=== PATIENT | male | born 1945 | race Caucasian/White ===

== ENCOUNTER 2017-01-05 07:34 | Day surgery (SDC) | payer MEDICARE, BC ==
[~2017-01-05 07:34] MED LIST: Lactated Ringers 1,000 ML IV SCH; Lidocaine 1%/Sod Bicarbonate in NS 8.4% 1 ML Syringe IV PRN; Propofol 200 MG/20 ML SDV ONE; Sodium Chloride 0.9% 10 ML Syringe FLUSH PRN
--- NOTE | 2017-01-05 07:57 | PCM.PREANE ---
Preanesthetic Assessment - Anesthesia/Transfusion/Family Hx Anesthesia History: Prior Anesthesia Without Reaction Family History of Anesthesia Reaction: No - Review of Systems General: No Symptoms Pulmonary: No Symptoms Cardiovascular: No Symptoms Gastrointestinal: No symptoms Neurological: No Symptoms Other: Reports: None - Physical Assessment Pulse: 75 O2 Sat by Pulse Oximetry: 94 Respiratory Rate: 16 Blood Pressure: 151/72 Temperature: 98.8 C ASA Class: 2 Mental Status: Alert & Oriented x3 Airway Class: Mallampati = 2 Dentition: Reports: Normal Dentition Thyro-Mental Finger Breadths: 3 Mouth Opening Finger Breadths: 3 ROM/Head Extension: Full Lungs: Clear to auscultation, Normal respiratory effort Cardiovascular: Regular Rate, Regular Rhythm - Allergies Allergies/Adverse Reactions: Allergies Allergy/AdvReac Type Severity Reaction Status Date / Time cefuroxime Allergy Cannot Verified 01/02/17 14:36 Remember - Anesthesia Plan Beta Dayan: Carvedilol Med Last Dose Date: 01/05/17 Med Last Dose Time: 06:00 - Acknowledgements Anesthesia Type Planned: MAC Pt an Appropriate Candidate for the Planned Anesthesia: Yes Alternatives and Risks of Anesthesia Discussed w Pt/Guardian: Yes Pt/Guardian Understands and Agrees with Anesthesia Plan: Yes PreAnesthesia Questionnaire HEENT History: Reports: Impaired vision, Other (see below) Other HEENT History: deviated septum Cardiovascular History: Reports: CAD, High cholesterol, Hypertension, Stents Respiratory History: Reports: None Gastrointestinal History: Reports: GERD, Hemorrhoids Genitourinary History: Reports: Renal calculus 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: None Musculoskeletal History: Reports: None Neurological History: Reports: None Psychiatric History: Reports: None Endocrine/Metabolic History: Reports: None Hematologic History: Reports: None Oncologic (Cancer) History: Reports: None Dermatologic History: Reports: None - Infectious Disease History Infectious Disease History: Reports: None - Past Surgical History Head Surgeries/Procedures: Reports: None HEENT Surgical History: Reports: Adenoidectomy, Tonsillectomy Cardiovascular Surgical History: Reports: Coronary artery stent Respiratory Surgical History: Reports: None GI Surgical History: Reports: Cholecystectomy, Other (see below) Other GI Surgeries/Procedures: hemorrhoidectomy Female Surgical History: Reports: None Male Surgical History: Reports: None Endocrine Surgical History: Reports: None Neurological Surgical History: Reports: None Musculoskeletal Surgical History: Reports: None, Other (see below) Other Musculoskeletal Surgeries/Procedures:: Right ankle fracture with hardware Oncologic Surgical History: Reports: None Dermatological Surgical History: Reports: None - Past Imaging History Past Imaging History: Reports: Angiography - SUBSTANCE USE Smoking Status *Q: Former Smoker Recreational Drug Use History: No - HOME MEDS Home Medications: Home Meds Aspirin [Adult Low Dose Aspirin EC] 81 mg PO DAILY 03/23/14 [History] Carvedilol [Coreg] 3.125 mg PO BID 03/23/14 [History] Clopidogrel [Plavix] 75 mg PO DAILY 03/23/14 [History] Doxazosin [Doxazosin Mesylate] 4 mg PO DAILY 03/23/14 [History] Lisinopril/Hydrochlorothiazide [Lisinopril-Hctz 10-12.5 mg Tab] 1 tab PO DAILY 03/23/14 [History] Nitroglycerin [Nitrostat] 0.4 mg SL ASDIRECTED PRN 03/23/14 [History] Rosuvastatin [Crestor] 20 mg PO DAILY 03/23/14 [History] Ubidecarenone [Co Q-10] 200 mg PO DAILY 03/23/14 [History] Beta-Carotene(A) w/C & E/Min [Prosight] 1 tab PO DAILY 01/02/17 [History] amLODIPine [Norvasc] 5 mg PO DAILY 01/02/17 [History] - CURRENT (IN HOUSE) MEDS Current Meds: Current Medications Lactated Ringer's (Ringers, Lactated) 1,000 mls @ 125 mls/hr IV ASDIRECTED RAJANI Stop: 01/05/17 23:00 Lidocaine/Sodium Bicarbonate (Buffered Lidocaine 1% In Ns 8.4%) 0.25 ml IV ONETIME PRN PRN Reason: Prior to IV Start Stop: 01/05/17 18:00 Sodium Chloride (Saline Flush) 10 ml FLUSH ASDIRECTED PRN PRN Reason: Keep Vein Open Stop: 01/05/17 18:00 Discontinued Medications Propofol (Diprivan 20 Ml) Confirm Administered Dose 200 mg .ROUTE .STK-MED ONE Stop: 01/05/17 07:12 Preanesthetic Assessment - ALLERGIES Allergies/Adverse Reactions: Allergies Allergy/AdvReac Type Severity Reaction Status Date / Time cefuroxime Allergy Cannot Verified 01/02/17 14:36 Remember
[2017-01-05] MEDS ORDERED: Propofol 200 MG/20 ML SDV ONE ×4 (09:28→10:18)
[2017-01-05] MEDS ORDERED: Lactated Ringers 1,000 ML ONE (09:57)
--- NOTE | 2017-01-05 10:11 | PCM.OPNOTE ---
- General Post-Op/Procedure Note Date of Surgery/Procedure: 01/05/17 Operative Procedure(s): colonosocopy with polypectomy Pre Op Diagnosis: screening colonosocopy Post-Op Diagnosis: Same Anesthesia Technique: MAC Primary Surgeon: Nadeem Coronel EBL in mLs: 0 Complications: None Condition: Good
--- NOTE | 2017-01-05 10:15 | PCM48HPAN ---
Post Anesthesia Note - EVALUATION WITHIN 48HRS OF ANESTHETIC Vital Signs in Normal Range: Yes Patient Participated in Evaluation: Yes Respiratory Function Stable: Yes Airway Patent: Yes Cardiovascular Function Stable: Yes Hydration Status Stable: Yes Pain Control Satisfactory: Yes Nausea and Vomiting Control Satisfactory: Yes Mental Status Recovered: Yes
[2017-01-05 11:17] VITALS: BP 130/75
--- NOTE | 2017-01-06 09:35 | OR ---
DATE OF OPERATION: 01/05/2017 SURGEON: Nadeem Coronel MD PREOPERATIVE DIAGNOSIS: Screening colonoscopy. POSTOPERATIVE DIAGNOSIS: Screening colonoscopy. OPERATION PERFORMED: Colonoscopy to cecum with removal of a 1 cm plus polyp adjacent from the ileocecal valve. ANESTHESIA: IV sedation. FINDINGS: A sessile polyp approximately a little over a centimeter located adjacent from the ileocecal valve at the junction of the cecum with the ascending colon. There is no angiodysplasias, large tumor masses, ulcerations, diverticulum, or hemorrhoids. DESCRIPTION OF PROCEDURE: The patient was taken to the endoscopy room, placed in the supine position, connected to monitoring equipment, given IV sedation and placed in left lateral position. Perianal area was inspected, it was normal. Rectal exam showed good sphincter tone. A Video Olympus colonoscope was then introduced without problem to the cecum, where the appendicular orifice was seen. The prep was excellent throughout the colon. [place] Cleansing score grade A, and the scope was slowly withdrawn showing the cecum, ascending colon, transverse colon, descending colon, sigmoid colon, and rectum. A polyp that was sessile as described above, severed with cautery, snared in morsels, it was removed and it was retrieved with a basket snare. The site that the polypectomy was done, 2 clips were placed to seal it. The patient tolerated the procedure, sent to recovery room in a stable condition. Will be followed up in the clinic and specimens sent to Pathology in a labeled container. ESTIMATED BLOOD LOSS: MMODAL /[id number]
== END 2017-01-05 11:10 | disposition home or self-care (01) ==
LOC: JD.SDS 07:34
PROVIDERS: ATTEND Surgery
DX: Z12.11 Encounter for screening for malignant neoplasm of colon (principal); D12.0 Benign neoplasm of cecum; I25.10 Atherosclerotic heart disease of native coronary artery without angina pectoris; E78.5 Hyperlipidemia, unspecified; I10 Essential (primary) hypertension; Z88.1 Allergy status to other antibiotic agents; Z79.82 Long term (current) use of aspirin; Z79.899 Other long term (current) drug therapy; Z87.891 Personal history of nicotine dependence; Z79.02 Long term (current) use of antithrombotics/antiplatelets; Z95.5 Presence of coronary angioplasty implant and graft; Z90.49 Acquired absence of other specified parts of digestive tract; Z98.890 Other specified postprocedural states
CPT/HCPCS: 45385; 88305; J7120; 00810; J2704

== ENCOUNTER 2017-01-12 18:30 | Observation (INO) | payer MEDICARE, BC ==
[2017-01-12] MEDS ORDERED: Sodium Chloride 0.9% 1,000 ML ONE (18:38)
[2017-01-12] MEDS ORDERED: Sodium Chloride 0.9% 1,000 ML IV ONE (18:40)
[2017-01-12] MEDS ORDERED: Propofol 200 MG/20 ML SDV ONE (19:33)
[2017-01-12] MEDS ORDERED: Midazolam 1 MG/ML 2 ML SDV ONE (19:33)
[2017-01-12] MEDS ORDERED: fentaNYL 250 MCG/5 ML SDV ONE (19:33)
[2017-01-12] MEDS ORDERED: Succinylcholine/Normal Saline 100 MG/5 ML Syringe ONE (19:39)
[2017-01-12] MEDS ORDERED: Lidocaine 1% 4 ML ONE (19:39)
[2017-01-12] MEDS ORDERED: Ondansetron 4 MG/2 ML SDV ONE (19:39)
[2017-01-12] MEDS ORDERED: Dexamethasone 4 MG/ML SDV ONE (19:39)
[2017-01-12] MEDS ORDERED: ePHEDrine/Normal Saline 25 MG/5 ML Syringe ONE ×3 (19:56→20:23)
[2017-01-12] MEDS ORDERED: Phenylephrine 1% 10 MG/ML SDV ONE ×2 (20:06→20:10)
[2017-01-12] MEDS ORDERED: Lactated Ringers 1,000 ML ONE ×2 (20:40)
[2017-01-12] MEDS ORDERED: Sodium Chloride 0.9% 1,000 ML IV SCH (20:45)
[2017-01-12] MEDS ORDERED: Nitroglycerin 0.4 MG Tab.SL SL PRN (20:49)
--- NOTE | 2017-01-12 20:52 | PCM.OPNOTE ---
- General Post-Op/Procedure Note Date of Surgery/Procedure: 01/12/17 Operative Procedure(s): colonoscopy with coagulation of bleeder Pre Op Diagnosis: gi bleeding lower Post-Op Diagnosis: Same Anesthesia Technique: General ET tube Primary Surgeon: Nadeem Coronel EBL in mLs: 0 Complications: None Condition: Good
[2017-01-12] MEDS ORDERED: CRESTOR 20 MG PO SCH (21:00)
[2017-01-12] MEDS ORDERED: Ondansetron 4 MG/2 ML SDV IVPUSH PRN (21:01)
[2017-01-12] MEDS ORDERED: diphenhydrAMINE 50 MG/ML SDV IVPUSH PRN (21:01)
[2017-01-12] MEDS ORDERED: fentaNYL 100 MCG/2 ML SDV IVPUSH PRN (21:01)
--- NOTE | 2017-01-12 21:01 | PCM.POSTAN ---
POST ANESTHESIA ASSESSMENT - MENTAL STATUS Mental Status: alert, oriented - VITAL SIGNS Pulse Rate: 78 SaO2: 91 Resp Rate: 11 Blood Pressure: 145/66 Temperature: 36.4 C - RESPIRATORY Respiratory Status: respiratory rate WNL, airway patent, O2 saturation stable, supplemental oxygen - CARDIOVASCULAR CV Status: pulse rate WNL, blood pressure stable - GASTROINTESTINAL GI Status: no symptoms - PAIN Pain Score: 0 - POST OP HYDRATION Hydration Status: adequate & stable
--- NOTE | 2017-01-12 21:12 | PCM.PREANE ---
Preanesthetic Assessment - Anesthesia/Transfusion/Family Hx Anesthesia History: Prior Anesthesia Without Reaction Type of Anesthesia Reaction: Unknown Family History of Anesthesia Reaction: No Transfusion History: No Prior Transfusion(s) Type of Transfusion Reactions: Reports: Unknown Intubation History: Unknown Additional History: Patient just had a colonoscopy here last week. Plavix held 5 days prior to that procedure and has been held post procedure. - Review of Systems General: No Symptoms Pulmonary: No Symptoms Cardiovascular: No Symptoms Gastrointestinal: Diarrhea (bloody) Neurological: No Symptoms - Physical Assessment NPO Status Date: 01/12/17 NPO Status Time: 16:30 Pulse: 78 O2 Sat by Pulse Oximetry: 94 Respiratory Rate: 14 Blood Pressure: 145/66 Temperature: 36.4 C Vital Signs: Last Vital Signs Temp 36.1 C 01/12/17 21:05 Pulse 78 01/12/17 21:01 Resp 14 01/12/17 21:05 BP 131/58 L 01/12/17 21:05 Pulse Ox 94 L 01/12/17 21:05 Height: 1.75 m Weight: 138.799 kg ASA Class: 3E Mental Status: Alert & Oriented x3 Airway Class: Mallampati = 2 Dentition: Reports: Normal Dentition Thyro-Mental Finger Breadths: 3 Mouth Opening Finger Breadths: 3 ROM/Head Extension: Full Lungs: Clear to auscultation Cardiovascular: Regular Rate, Regular Rhythm - Lab Values: Laboratory Last Values WBC 11.72 K/mm3 (4.23-9.07) H 01/12/17 18:35 RBC 5.24 M/mm3 (4.63-6.08) 01/12/17 18:35 Hgb 14.2 gm/L (13.7-17.5) 01/12/17 18:35 Hct 42.6 % (40.1-51.0) 01/12/17 18:35 MCV 81.3 fl (79.0-92.2) 01/12/17 18:35 MCH 27.1 pg (25.7-32.2) 01/12/17 18:35 MCHC 33.3 g/dl (32.2-35.5) 01/12/17 18:35 RDW Std Deviation 41.3 fL (35.1-43.9) 01/12/17 18:35 Plt Count 284 K/mm3 (163-337) 01/12/17 18:35 MPV 10.4 fl (9.4-12.3) 01/12/17 18:35 Neut % (Auto) 68.8 % (34.0-67.9) H 01/12/17 18:35 Lymph % (Auto) 20.7 % (21.8-53.1) L 01/12/17 18:35 [place] % (Auto) 7.8 % (5.3-12.2) 01/12/17 18:35 Eos % (Auto) 2.1 (0.8-7.0) 01/12/17 18:35 Baso % (Auto) 0.4 % (0.1-1.2) 01/12/17 18:35 Neut # (Auto) 8.06 K/mm3 (1.78-5.38) H 01/12/17 18:35 Lymph # (Auto) 2.43 K/mm3 (1.32-3.57) 01/12/17 18:35 [place] # (Auto) 0.91 K/mm3 (0.30-0.82) H 01/12/17 18:35 Eos # (Auto) 0.25 K/mm3 (0.04-0.54) 01/12/17 18:35 Baso # (Auto) 0.05 K/mm3 (0.01-0.08) 01/12/17 18:35 Sodium 140 mEq/L (136-145) 01/12/17 18:35 Potassium 4.2 mEq/L (3.5-5.1) 01/12/17 18:35 Chloride 105 mEq/L (98-107) 01/12/17 18:35 Carbon Dioxide 25 mEq/L (21-32) 01/12/17 18:35 Anion Gap 14.2 (5-15) 01/12/17 18:35 BUN 24 mg/dL (7-18) H 01/12/17 18:35 Creatinine 1.2 mg/dL (0.7-1.3) 01/12/17 18:35 Est Cr Clr Drug Dosing TNP 01/12/17 18:35 Estimated GFR (MDRD) 59 mL/min (>60) 01/12/17 18:35 BUN/Creatinine Ratio 20.0 (14-18) H 01/12/17 18:35 Glucose 179 mg/dL (83-115) H 01/12/17 18:35 Calcium 8.6 mg/dL (8.5-10.1) 01/12/17 18:35 Total Bilirubin 0.5 mg/dL (0.2-1.0) 01/12/17 18:35 AST 15 U/L (15-37) 01/12/17 18:35 ALT 29 U/L (16-63) 01/12/17 18:35 Alkaline Phosphatase 71 U/L (46-116) 01/12/17 18:35 Total Protein 6.2 g/dl (6.4-8.2) L 01/12/17 18:35 Albumin 3.4 g/dl (3.4-5.0) 01/12/17 18:35 Globulin 2.8 gm/dL 01/12/17 18:35 Albumin/Globulin Ratio 1.2 (1-2) 01/12/17 18:35 Blood Type A POSITIVE 01/12/17 18:35 Gel Antibody Screen Negative 01/12/17 18:35 Crossmatch See Detail 01/12/17 18:35 - Allergies Allergies/Adverse Reactions: Allergies Allergy/AdvReac Type Severity Reaction Status Date / Time cefuroxime Allergy Cannot Verified 01/12/17 18:53 Remember - Blood Blood Available: No Product(s) Available: None - Anesthesia Plan Beta Dayan: Carvedilol Med Last Dose Date: 01/12/17 Med Last Dose Time: 08:30 - Acknowledgements Anesthesia Type Planned: General Anesthesia Pt an Appropriate Candidate for the Planned Anesthesia: Yes Alternatives and Risks of Anesthesia Discussed w Pt/Guardian: Yes Pt/Guardian Understands and Agrees with Anesthesia Plan: Yes PreAnesthesia Questionnaire HEENT History: Reports: Impaired vision, Other (see below) Other HEENT History: deviated septum Cardiovascular History: Reports: CAD, High cholesterol, Hypertension, Stents Respiratory History: Reports: None Gastrointestinal History: Reports: GERD, Hemorrhoids Genitourinary History: Reports: Renal calculus [employer]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 Musculoskeletal History: Reports: None Neurological History: Reports: None Psychiatric History: Reports: None Endocrine/Metabolic History: Reports: None Hematologic History: Reports: None Oncologic (Cancer) History: Reports: None Dermatologic History: Reports: None - Infectious Disease History Infectious Disease History: Reports: None - Past Surgical History Head Surgeries/Procedures: Reports: None HEENT Surgical History: Reports: Adenoidectomy, Tonsillectomy Cardiovascular Surgical History: Reports: Coronary artery stent Respiratory Surgical History: Reports: None GI Surgical History: Reports: Cholecystectomy, Other (see below) Other GI Surgeries/Procedures: hemorrhoidectomy Female Surgical History: Reports: None Male Surgical History: Reports: None Endocrine Surgical History: Reports: None Neurological Surgical History: Reports: None Musculoskeletal Surgical History: Reports: None, Other (see below) Other Musculoskeletal Surgeries/Procedures:: Right ankle fracture with hardware Oncologic Surgical History: Reports: None Dermatological Surgical History: Reports: None - Past Imaging History Past Imaging History: Reports: Angiography - SUBSTANCE USE Smoking Status *Q: Former Smoker Recreational Drug Use History: No - HOME MEDS Home Medications: Home Meds Aspirin [Adult Low Dose Aspirin EC] 81 mg PO DAILY 03/23/14 [History] Carvedilol [Coreg] 3.125 mg PO BID 03/23/14 [History] Clopidogrel [Plavix] 75 mg PO DAILY 03/23/14 [History] Doxazosin [Doxazosin Mesylate] 4 mg PO DAILY 03/23/14 [History] Lisinopril/Hydrochlorothiazide [Lisinopril-Hctz 10-12.5 mg Tab] 1 tab PO DAILY 03/23/14 [History] Nitroglycerin [Nitrostat] 0.4 mg SL ASDIRECTED PRN 03/23/14 [History] Rosuvastatin [Crestor] 20 mg PO BEDTIME 03/23/14 [History] Ubidecarenone [Co Q-10] 200 mg PO DAILY 03/23/14 [History] Beta-Carotene(A) w/C & E/Min [Prosight] 1 tab PO DAILY 01/02/17 [History] amLODIPine [Norvasc] 5 mg PO DAILY 01/02/17 [History] - CURRENT (IN HOUSE) MEDS Current Meds: Current Medications Amlodipine Besylate (Norvasc) 5 mg PO DAILY RAJANI Carvedilol (Coreg) 3.125 mg PO BID RAJANI Diphenhydramine HCl (Benadryl) 25 mg IVPUSH Q6H PRN PRN Reason: Pruritis Fentanyl (Sublimaze) 50 mcg IVPUSH Q5M PRN PRN Reason: Pain Stop: 01/12/17 21:17 Sodium Chloride (Normal Saline) 1,000 mls @ 75 mls/hr IV ASDIRECTED RAJANI Nitroglycerin (Nitrostat) 0.4 mg SL ASDIRECTED PRN PRN Reason: Chest Pain Non-Formulary Medication (Doxazosin) 4 mg PO DAILY [facility] Non-Formulary Medication (Lisinopril/Hydrochlorothiazide [Lisinopril-Hctz 10- 12.5 Mg Tab]) 1 tab PO DAILY [facility] Ondansetron HCl (Zofran) 4 mg IVPUSH ONETIME PRN PRN Reason: Nausea/Vomiting Rosuvastatin Calcium (Crestor) 20 mg PO BEDTIME RAJANI Discontinued Medications Dexamethasone (Dexamethasone) Confirm Administered Dose 4 mg .ROUTE .STK-MED ONE Stop: 01/12/17 19:40 Ephedrine Sulfate (Ephedrine In Ns) Confirm Administered Dose 25 mg .ROUTE .STK- MED ONE Stop: 01/12/17 19:57 Ephedrine Sulfate (Ephedrine In Ns) Confirm Administered Dose 25 mg .ROUTE .STK- MED ONE Stop: 01/12/17 20:07 Ephedrine Sulfate (Ephedrine In Ns) Confirm Administered Dose 25 mg .ROUTE .STK- MED ONE Stop: 01/12/17 20:24 Fentanyl (Sublimaze) Confirm Administered Dose 250 mcg .ROUTE .STK-MED ONE Stop: 01/12/17 19:34 Sodium Chloride (Normal Saline) Confirm Administered Dose 1,000 mls @ as directed .ROUTE .STK-MED ONE Stop: 01/12/17 18:39 Last Admin: 01/12/17 18:48 Dose: Not Given Sodium Chloride (Normal Saline) 1,000 mls @ 1,000 mls/hr IV ONETIME ONE Stop: 01/12/17 19:39 Last Admin: 01/12/17 18:40 Dose: 1,000 mls/hr Lidocaine HCl (Xylocaine-Mpf 1%) Confirm Administered Dose 4 mls @ as directed .ROUTE .STK-MED ONE Stop: 01/12/17 19:40 Lactated Ringer's (Ringers, Lactated) Confirm Administered Dose 1,000 mls @ as directed .ROUTE .STK-MED ONE Stop: 01/12/17 20:41 Lactated Ringer's (Ringers, Lactated) Confirm Administered Dose 1,000 mls @ as directed .ROUTE .STK-MED ONE Stop: 01/12/17 20:41 Midazolam HCl (Versed 1 Mg/Ml) Confirm Administered Dose 2 mg .ROUTE .STK-MED ONE Stop: 01/12/17 19:34 Ondansetron HCl (Zofran) Confirm Administered Dose 4 mg .ROUTE .STK-MED ONE Stop: 01/12/17 19:40 Phenylephrine HCl (Temo-Synephrine) Confirm Administered Dose 10 mg .ROUTE .STK- MED ONE Stop: 01/12/17 20:07 Phenylephrine HCl (Temo-Synephrine) Confirm Administered Dose 10 mg .ROUTE .STK- MED ONE Stop: 01/12/17 20:11 Propofol (Diprivan 20 Ml) Confirm Administered Dose 200 mg .ROUTE .STK-MED ONE Stop: 01/12/17 19:34 Succinylcholine Chloride (Succinylcholine In Ns Pf) Confirm Administered Dose 100 mg .ROUTE .STK-MED ONE Stop: 01/12/17 19:40
--- NOTE | 2017-01-13 06:47 | HP ---
DATE OF ADMISSION: 01/12/2017 HISTORY OF PRESENT ILLNESS: A 72-year-old male, who has had rectal bleeding. It started about 9 o'clock this morning. It was dark blood and then had a bowel movement about noon. It was bright red and then about 1 o'clock and 2 o'clock, there were some clots, but seemed to have lessened. Came into the clinic. It was seen hematocrit was 47, down from 51. Abdomen on examination showed a benign abdomen. Blood pressure is stable. He seemed to be improving. Source of the bleeding was felt to be due to a polyp. 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 No cancer. The patient was sent home to rest at home, but continued to have rectal bleeding, came into the emergency room. PAST MEDICAL HISTORY: Coronary artery disease and history of mild arthritis. He has some hypertension. CURRENT MEDICATIONS: Reviewed per medication reconciliation form. ALLERGIES: Cefuroxime. SOCIAL HISTORY: He was a former smoker. Started in the 1960s and quit about 11/03/1975. No alcohol use. FAMILY HISTORY: Father had unknown cancer. REVIEW OF SYSTEMS: The patient has a little dizziness, feeling faint, but no fainting. Denies any chest pain or shortness of breath, cough, hoarseness, or wheezing, nausea, vomiting, or indigestion. Does have no sweating and does have some rectal bleeding, bright red blood. PHYSICAL EXAMINATION: VITAL SIGNS: As stated above. HEENT: Eyes unremarkable. NECK: Supple. LUNGS: Clear. HEART: Heart tones, regular rate. ABDOMEN: Soft, no tenderness, guarding, or rebound. EXTREMITIES: Upper extremities, no angulation deformities. SKIN: Warm and dry. MUSCULOSKELETAL: Ambulates without any device. NEUROLOGIC: 3 through 12 intact. PSYCH: Normal. ASSESSMENT: Rectal bleeding, probably due to polyp. PLAN: Stat lab work and then start IV. Give a small amount of fluid and bring to the operating room, emergency procedure for another colonoscopy and coagulation, bleeding site. Discussed this with the family, risks, complications, he understands and consents. DEON /[id number]
--- NOTE | 2017-01-13 06:51 | OR ---
DATE OF OPERATION: 01/12/2017 SURGEON: Nadeem Coronel MD PREOPERATIVE DIAGNOSIS: GI bleed at the polypectomy site and cecum. POSTOPERATIVE DIAGNOSIS: GI bleed at the polypectomy site and cecum. OPERATION PERFORMED: Colonoscopy, coagulation of visible vessel in the polypectomy site and the cecum. ANESTHESIA: General anesthetic. DESCRIPTION OF PROCEDURE: Patient taken to the operating room, placed in supine position, given a general anesthetic and intubated and placed in left lateral position. The perianal area was inspected, showed hemorrhoids. Rectal exam showed good sphincter tone showing old blood. A video Olympus colonoscope was then introduced into the rectum and threaded up to the cecum after external torquing the scope and external pressure on the stomach. The clip could be seen where the polypectomy site was noted. There was a small loose and a visible vessel. This was coagulated with electrocautery and the edges were coagulated and then irrigated and bleeding ceased. The scope was then slowly withdrawn showing blood throughout the colon, but no other bleeding site. The patient tolerated the procedure, sent to recovery room in stable condition. He will be admitted to the hospital for observation. ESTIMATED BLOOD LOSS: MMODAL /[id number]
--- NOTE | 2017-01-13 08:34 | PCM48HPAN ---
Post Anesthesia Note - EVALUATION WITHIN 48HRS OF ANESTHETIC Vital Signs in Normal Range: Yes Patient Participated in Evaluation: Yes Respiratory Function Stable: Yes Airway Patent: Yes Cardiovascular Function Stable: Yes Hydration Status Stable: Yes Pain Control Satisfactory: Yes Nausea and Vomiting Control Satisfactory: Yes Mental Status Recovered: Yes - COMMENTS/OBSERVATIONS Free Text/Narrative:: Patient sitting up visiting with visitor. No c/o noted by patient.
[2017-01-13] MEDS ORDERED: LISINOPRIL HCTZ PO SCH (09:00)
[2017-01-13] MEDS ORDERED: DOXAZOSIN 4 MG PO SCH (09:00)
[2017-01-13] MEDS ORDERED: AMLODIPINE 5 MG PO SCH (09:00)
[2017-01-13] MEDS: CARVEDILOL 3.125 MG PO SCH ×2 (09:07)
[2017-01-13 11:59] VITALS: BP 123/56
--- NOTE | 2017-01-13 13:23 | PCM.PN ---
- General Info Date of Service: 01/13/17 - Patient Data Vitals - most recent: Last Vital Signs Temp 98.2 F 01/13/17 11:48 Pulse 82 01/13/17 11:48 Resp 18 01/13/17 11:48 BP 123/56 L 01/13/17 11:48 Pulse Ox 92 L 01/13/17 11:48 Weight - most recent: 140.84 kg I&O - last 24 hours: Intake & Output 01/12/17 01/13/17 01/13/17 23:59 07:59 15:59 Intake Total 926 570 Output Total 600 Balance 326 570 Lab Results last 24 hrs: Laboratory Results - last 24 hr 01/12/17 01/12/17 01/12/17 Range/Units 18:35 18:35 18:35 WBC 11.72 H (4.23-9.07) K/mm3 RBC 5.24 (4.63-6.08) M/mm3 Hgb 14.2 (13.7-17.5) gm/L Hct 42.6 (40.1-51.0) % MCV 81.3 (79.0-92.2) fl MCH 27.1 (25.7-32.2) pg MCHC 33.3 (32.2-35.5) g/dl RDW Std Deviation 41.3 (35.1-43.9) fL Plt Count 284 (163-337) K/mm3 MPV 10.4 (9.4-12.3) fl Neut % (Auto) 68.8 H (34.0-67.9) % Lymph % (Auto) 20.7 L (21.8-53.1) % Dare % (Auto) 7.8 (5.3-12.2) % Eos % (Auto) 2.1 (0.8-7.0) Baso % (Auto) 0.4 (0.1-1.2) % Neut # (Auto) 8.06 H (1.78-5.38) K/mm3 Lymph # (Auto) 2.43 (1.32-3.57) K/mm3 Dare # (Auto) 0.91 H (0.30-0.82) K/mm3 Eos # (Auto) 0.25 (0.04-0.54) K/mm3 Baso # (Auto) 0.05 (0.01-0.08) K/mm3 Sodium 140 (136-145) mEq/L Potassium 4.2 (3.5-5.1) mEq/L Chloride 105 (98-107) mEq/L Carbon Dioxide 25 (21-32) mEq/L Anion Gap 14.2 (5-15) BUN 24 H (7-18) mg/dL Creatinine 1.2 (0.7-1.3) mg/dL Est Cr Clr Drug Dosing TNP Estimated GFR (MDRD) 59 (>60) mL/min BUN/Creatinine Ratio 20.0 H (14-18) Glucose 179 H (83-115) mg/dL Calcium 8.6 (8.5-10.1) mg/dL Total Bilirubin 0.5 (0.2-1.0) mg/dL AST 15 (15-37) U/L ALT 29 (16-63) U/L Alkaline Phosphatase 71 (46-116) U/L Total Protein 6.2 L (6.4-8.2) g/dl Albumin 3.4 (3.4-5.0) g/dl Globulin 2.8 gm/dL Albumin/Globulin Ratio 1.2 (1-2) Blood Type A POSITIVE Gel Antibody Screen Negative Crossmatch See Detail 01/13/17 Range/Units 12:02 WBC 11.13 H (4.23-9.07) K/mm3 RBC 4.45 L (4.63-6.08) M/mm3 Hgb 12.0 L (13.7-17.5) gm/L Hct 36.4 L (40.1-51.0) % MCV 81.8 (79.0-92.2) fl MCH 27.0 (25.7-32.2) pg MCHC 33.0 (32.2-35.5) g/dl RDW Std Deviation 40.9 (35.1-43.9) fL Plt Count 265 (163-337) K/mm3 MPV 9.9 (9.4-12.3) fl Neut % (Auto) 79.8 H (34.0-67.9) % Lymph % (Auto) 11.1 L (21.8-53.1) % Dare % (Auto) 8.8 (5.3-12.2) % Eos % (Auto) 0 L (0.8-7.0) Baso % (Auto) 0.1 (0.1-1.2) % Neut # (Auto) 8.88 H (1.78-5.38) K/mm3 Lymph # (Auto) 1.24 L (1.32-3.57) K/mm3 Dare # (Auto) 0.98 H (0.30-0.82) K/mm3 Eos # (Auto) 0.00 L (0.04-0.54) K/mm3 Baso # (Auto) 0.01 (0.01-0.08) K/mm3 Sodium (136-145) mEq/L Potassium (3.5-5.1) mEq/L Chloride (98-107) mEq/L Carbon Dioxide (21-32) mEq/L Anion Gap (5-15) BUN (7-18) mg/dL Creatinine (0.7-1.3) mg/dL Est Cr Clr Drug Dosing Estimated GFR (MDRD) (>60) mL/min BUN/Creatinine Ratio (14-18) Glucose (83-115) mg/dL Calcium (8.5-10.1) mg/dL Total Bilirubin (0.2-1.0) mg/dL AST (15-37) U/L ALT (16-63) U/L Alkaline Phosphatase (46-116) U/L Total Protein (6.4-8.2) g/dl Albumin (3.4-5.0) g/dl Globulin gm/dL Albumin/Globulin Ratio (1-2) Blood Type Gel Antibody Screen Crossmatch Med Orders - Current: Current Medications Diphenhydramine HCl (Benadryl) 25 mg IVPUSH Q6H PRN PRN Reason: Pruritis Sodium Chloride (Normal Saline) 1,000 mls @ 75 mls/hr IV ASDIRECTED RAJANI Last Admin: 01/12/17 23:20 Dose: 75 mls/hr Nitroglycerin (Nitrostat) 0.4 mg SL ASDIRECTED PRN PRN Reason: Chest Pain Ondansetron HCl (Zofran) 4 mg IVPUSH ONETIME PRN PRN Reason: Nausea/Vomiting Doxazosin 4 Mg 0 each PO DAILY [facility] Last Admin: 01/13/17 09:09 Dose: 1 each Lisinopril-Hctz 10- (12.5 Mg) 0 each PO DAILY [facility] Last Admin: 01/13/17 09:09 Dose: 1 each Carvedilol (Coreg) 3 (.125 Mg) 0 each PO BID [facility] Last Admin: 01/13/17 09:07 Dose: 1 each Crestor ( (Rosuvastatin) 20 Mg) 0 each PO BEDTIME [facility] Last Admin: 01/13/17 09:08 Dose: Not Given Amlodipine 5 Mg 0 each PO DAILY [facility] Last Admin: 01/13/17 09:08 Dose: 1 each Discontinued Medications Dexamethasone (Dexamethasone) Confirm Administered Dose 4 mg .ROUTE .STK-MED ONE Stop: 01/12/17 19:40 Ephedrine Sulfate (Ephedrine In Ns) Confirm Administered Dose 25 mg .ROUTE .STK- MED ONE Stop: 01/12/17 19:57 Ephedrine Sulfate (Ephedrine In Ns) Confirm Administered Dose 25 mg .ROUTE .STK- MED ONE Stop: 01/12/17 20:07 Ephedrine Sulfate (Ephedrine In Ns) Confirm Administered Dose 25 mg .ROUTE .STK- MED ONE Stop: 01/12/17 20:24 Fentanyl (Sublimaze) Confirm Administered Dose 250 mcg .ROUTE .STK-MED ONE Stop: 01/12/17 19:34 Fentanyl (Sublimaze) 50 mcg IVPUSH Q5M PRN PRN Reason: Pain Stop: 01/12/17 21:17 Sodium Chloride (Normal Saline) Confirm Administered Dose 1,000 mls @ as directed .ROUTE .STK-MED ONE Stop: 01/12/17 18:39 Last Admin: 01/12/17 18:48 Dose: Not Given Sodium Chloride (Normal Saline) 1,000 mls @ 1,000 mls/hr IV ONETIME ONE Stop: 01/12/17 19:39 Last Admin: 01/12/17 18:40 Dose: 1,000 mls/hr Lidocaine HCl (Xylocaine-Mpf 1%) Confirm Administered Dose 4 mls @ as directed .ROUTE .STK-MED ONE Stop: 01/12/17 19:40 Lactated Ringer's (Ringers, Lactated) Confirm Administered Dose 1,000 mls @ as directed .ROUTE .STK-MED ONE Stop: 01/12/17 20:41 Lactated Ringer's (Ringers, Lactated) Confirm Administered Dose 1,000 mls @ as directed .ROUTE .STK-MED ONE Stop: 01/12/17 20:41 Midazolam HCl (Versed 1 Mg/Ml) Confirm Administered Dose 2 mg .ROUTE .STK-MED ONE Stop: 01/12/17 19:34 Ondansetron HCl (Zofran) Confirm Administered Dose 4 mg .ROUTE .STK-MED ONE Stop: 01/12/17 19:40 Phenylephrine HCl (Temo-Synephrine) Confirm Administered Dose 10 mg .ROUTE .STK- MED ONE Stop: 01/12/17 20:07 Phenylephrine HCl (Temo-Synephrine) Confirm Administered Dose 10 mg .ROUTE .STK- MED ONE Stop: 01/12/17 20:11 Propofol (Diprivan 20 Ml) Confirm Administered Dose 200 mg .ROUTE .STK-MED ONE Stop: 01/12/17 19:34 Succinylcholine Chloride (Succinylcholine In Ns Pf) Confirm Administered Dose 100 mg .ROUTE .STK-MED ONE Stop: 01/12/17 19:40 - Problem List Review Problem List Initiated/Reviewed/Updated: Yes - My Orders Last 24 Hours: My Active Orders 01/12/17 18:35 PATIENT RETYPE [BBK] Routine RED BLOOD CELLS LP [BBK] Routine TYPE AND SCREEN [BBK] Routine 01/12/17 18:42 Schedule Procedure [COMM] Stat 01/12/17 18:45 Schedule Procedure [COMM] Stat 01/12/17 20:43 Bedrest Bathroom Privileges [RC] BID Bedrest Bedside Commode [RC] BID Telemetry Monitoring [Cardiac Monitoring] [RC] . DIRECTED 01/12/17 20:44 Patient Status [ADT] Routine 01/12/17 20:45 Sodium Chloride 0.9% [Normal Saline] 1,000 ml IV ASDIRECTED 01/12/17 20:49 Nitroglycerin [Nitrostat] 0.4 mg SL ASDIRECTED PRN 01/12/17 21:00 Patient's Own Medication [Ptom] 0 each PO BEDTIME Patient's Own Medication [Ptom] 0 each PO BID 01/12/17 23:19 Code Status [Resuscitation Status] Routine 01/13/17 08:13 SCD [Sequential Compression Device] [OM.PC] Routine 01/13/17 08:14 Antiembolic Devices [RC] PER UNIT ROUTINE 01/13/17 09:00 Patient's Own Medication [Ptom] 0 each PO DAILY Patient's Own Medication [Ptom] 0 each PO DAILY Patient's Own Medication [Ptom] 0 each PO DAILY 01/13/17 13:20 Ready for Discharge [RC] PER UNIT ROUTINE Discontinue Saline Lock [Peripheral IV Discontinue] [OM.PC] Routine 01/13/17 Dinner Regular Diet [DIET] - Plan Plan:: discharge dictated LOY
--- NOTE | 2017-01-14 07:48 | DISCH ---
ADMISSION DATE: 01/12/2017 DISCHARGE DATE: 01/13/2017 HISTORY: This is a 72-year-old who presented with rectal bleed at 9 o'clock on the morning of admission. It was dark, bloody, had a number of bowel movements throughout the day. He came in to the clinic for examination, which showed a hematocrit 47 down from 51. Vital signs were stable. Abdomen is soft and it appeared that the bleeding had subsided. He was offered admission and observation versus home and observation and patient decided to go home. He called me at around 5 saying he has continued to bleed. He was brought into the emergency room and there after evaluation transported to the operating room for emergency colonoscopy. The patient had a colonoscopy a week ago with removal of a polyp in the cecum and bleeding vessel was noted, at the moment was bleeding and this was coagulated. The patient was admitted to the hospital for observation. PHYSICAL EXAMINATION: At the time of his admission, ABDOMEN: Soft. EYES, EARS, NOSE, AND THROAT: Unremarkable. NECK: Supple. LUNGS: Clear. SKIN: Warm. VITAL SIGNS: Stable. Hemoglobin was 14. HOSPITAL COURSE: The patient was placed in the hospital on IV fluids, clear liquids, and watched. He had no further bleeding. Hemoglobin drifted down to 12.0 and platelets were normal. Of interest is that the patient had been on Plavix, but was stopped before he had his polypectomy. The patient was up and ambulating eating without problem. Vital signs were stable. Had reached maximum hospital benefit and was discharged for followup in 1 week at the clinic. Discharged on a regular diet. No work. DISCHARGE MEDICATIONS: Per medication reconciliation form. CONDITION ON DISCHARGE: Improved. FINAL DIAGNOSIS: Lower GI bleed status post polypectomy status post repeat colonoscopy, coagulation of bleeding site at the site of polypectomy in the cecum. Will ask that he not take his Plavix. Follow up in the clinic in a week. DIET: Regular. ACTIVITY: No work. FOLLOW-UP: Follow up in the clinic in a week. DEON /[id number]
== END 2017-01-13 14:00 | disposition home or self-care (01) ==
LOC: JD.SDS 18:40 → EDSTATUS 18:40 → JD.MS 20:44
PROVIDERS: ADMIT Surgery; ATTEND Surgery
PROC: 0W3P8ZZ Control Bleeding in Gastrointestinal Tract, Via Natural or Artificial Opening Endoscopic (ICD-10-PCS; principal; 2017-01-12)
DX: K91.840 Postprocedural hemorrhage of a digestive system organ or structure following a digestive system procedure (principal); I25.10 Atherosclerotic heart disease of native coronary artery without angina pectoris; I10 Essential (primary) hypertension; M19.90 Unspecified osteoarthritis, unspecified site; E78.00 Pure hypercholesterolemia, unspecified; K21.9 Gastro-esophageal reflux disease without esophagitis; Z87.442 Personal history of urinary calculi; Z87.891 Personal history of nicotine dependence; Z88.1 Allergy status to other antibiotic agents; Z90.49 Acquired absence of other specified parts of digestive tract; Z90.89 Acquired absence of other organs; Z98.890 Other specified postprocedural states; Z79.02 Long term (current) use of antithrombotics/antiplatelets; Z79.82 Long term (current) use of aspirin; Z79.899 Other long term (current) drug therapy
CPT/HCPCS: 36415; 45382; 80053; 85025; 96360; 96361; G0378; J0330; J1100; J2250; J2370; J2405; J3010; J7040; J7050; J7120; 00810; 86850; 86900; 86901; 86922; J2704

== ENCOUNTER 2017-04-27 07:55 | Day surgery (SDC) | payer MEDICARE, BC ==
[~2017-04-27 07:55] MED LIST changes: -Propofol 200 MG/20 ML SDV ONE
[2017-04-27] MEDS ORDERED: Lidocaine 1% with EPINEPHrine 1:100,000 20 ML MDV ONE (08:42)
[2017-04-27] MEDS ORDERED: Bupivacaine 0.5%/EPINEPHrine 1:200,000 50 ML MDV ONE (08:42)
[2017-04-27] MEDS ORDERED: Propofol 200 MG/20 ML SDV ONE ×2 (09:30→10:26)
[2017-04-27] MEDS ORDERED: fentaNYL 250 MCG/5 ML SDV ONE (09:31)
--- NOTE | 2017-04-27 09:33 | PCM.PREANE ---
Preanesthetic Assessment - Anesthesia/Transfusion/Family Hx Anesthesia History: Prior Anesthesia Without Reaction Family History of Anesthesia Reaction: No Transfusion History: No Prior Transfusion(s) Type of Transfusion Reactions: Reports: Unknown Intubation History: Unknown - Review of Systems General: No Symptoms Pulmonary: No Symptoms Cardiovascular: No Symptoms Gastrointestinal: No Symptoms Neurological: No Symptoms Other: Reports: None - Physical Assessment NPO Status Date: 04/26/17 NPO Status Time: 23:10 Pulse: 64 O2 Sat by Pulse Oximetry: 94 Respiratory Rate: 20 Blood Pressure: 160/71 Temperature: 99.3 C Vital Signs: Last Vital Signs Temp 99.3 C H 04/27/17 08:00 Pulse 64 04/27/17 08:00 Resp 20 04/27/17 08:00 BP 160/71 H 04/27/17 08:00 Pulse Ox 94 L 04/27/17 08:00 Height: 1.75 m Weight: 142.882 kg ASA Class: 3 Mental Status: Alert & Oriented x3 Airway Class: Mallampati = 1 Dentition: Reports: Normal Dentition Thyro-Mental Finger Breadths: 3 Mouth Opening Finger Breadths: 3 ROM/Head Extension: Full Lungs: Clear to Auscultation, Normal Respiratory Effort Cardiovascular: Regular Rate, Regular Rhythm - Allergies Allergies/Adverse Reactions: Allergies Allergy/AdvReac Type Severity Reaction Status Date / Time cefuroxime Allergy Cannot Verified 04/27/17 08:49 Remember - Anesthesia Plan Pre-Op Medication Ordered: Beta Dayan Beta Dayan: Carvedilol Med Last Dose Date: 04/27/17 Med Last Dose Time: 06:00 - Acknowledgements Anesthesia Type Planned: MAC Pt an Appropriate Candidate for the Planned Anesthesia: Yes Alternatives and Risks of Anesthesia Discussed w Pt/Guardian: Yes Pt/Guardian Understands and Agrees with Anesthesia Plan: Yes PreAnesthesia Questionnaire HEENT History: Reports: Cataract, Impaired Vision, Other (See Below) Other HEENT History: deviated septum Cardiovascular History: Reports: Automatic Implantable Cardioverter Defibrillators, CAD, High Cholesterol, Hypertension, Stents Respiratory History: Reports: None Gastrointestinal History: Reports: Colon Polyp, GERD, Hemorrhoids, Other (See Below) Other Gastrointestinal History: umbilical hernia Genitourinary History: Reports: Renal Calculus [employer] PROVIDER History: Reports: None Musculoskeletal History: Reports: None Neurological History: Reports: None Psychiatric History: Reports: None Endocrine/Metabolic History: Reports: Obesity/BMI 30+ Hematologic History: Reports: None Immunologic History: Reports: None Oncologic (Cancer) History: Reports: None Dermatologic History: Reports: None - Infectious Disease History Infectious Disease History: Reports: Chicken Pox, Measles, Mumps - Past Surgical History Head Surgeries/Procedures: Reports: None HEENT Surgical History: Reports: Adenoidectomy, Tonsillectomy Cardiovascular Surgical History: Reports: Coronary Artery Stent (december 2013) Respiratory Surgical History: Reports: None GI Surgical History: Reports: Cholecystectomy, Colonoscopy, Other (See Below) Other GI Surgeries/Procedures: hemorrhoidectomy Female Surgical History: Reports: None Male Surgical History: Reports: None Endocrine Surgical History: Reports: None Neurological Surgical History: Reports: None Musculoskeletal Surgical History: Reports: Other (See Below) ((R) ankle) Other Musculoskeletal Surgeries/Procedures:: Right ankle fracture with hardware Oncologic Surgical History: Reports: None Dermatological Surgical History: Reports: None - Past Imaging History Past Imaging History: Reports: Angiography - SUBSTANCE USE Smoking Status *Q: Former Smoker Second Hand Smoke Exposure: No Recreational Drug Use History: No - HOME MEDS Home Medications: Home Meds Aspirin [Adult Low Dose Aspirin EC] 81 mg PO DAILY 03/23/14 [History] Carvedilol [Coreg] 3.125 mg PO BID 03/23/14 [History] Clopidogrel [Plavix] 75 mg PO DAILY 03/23/14 [History] Doxazosin [Doxazosin Mesylate] 4 mg PO DAILY 03/23/14 [History] Lisinopril/Hydrochlorothiazide [Lisinopril-Hctz 10-12.5 mg Tab] 1 tab PO DAILY 03/23/14 [History] Nitroglycerin [Nitrostat] 0.4 mg SL ASDIRECTED PRN 03/23/14 [History] Rosuvastatin [Crestor] 20 mg PO BEDTIME 03/23/14 [History] Ubidecarenone [Co Q-10] 200 mg PO DAILY 03/23/14 [History] amLODIPine [Norvasc] 5 mg PO DAILY 01/02/17 [History] Lutein 25 mg PO DAILY 04/27/17 [History] Zeaxanthin 5 mg PO DAILY 04/27/17 [History] - CURRENT (IN HOUSE) MEDS Current Meds: Current Medications Lactated Ringer's (Ringers, Lactated) 1,000 mls @ 125 mls/hr IV ASDIRECTED RAJANI Stop: 04/27/17 23:00 Last Admin: 04/27/17 08:30 Dose: 125 mls/hr Lidocaine/Sodium Bicarbonate (Buffered Lidocaine 1% In Ns 8.4%) 0.25 ml IV ONETIME PRN PRN Reason: Prior to IV Start Stop: 04/27/17 18:00 Last Admin: 04/27/17 08:29 Dose: 0.25 ml Sodium Chloride (Saline Flush) 10 ml FLUSH ASDIRECTED PRN PRN Reason: Keep Vein Open Stop: 04/27/17 18:00 Discontinued Medications Bupivacaine HCl/Epinephrine Bitart (Marcaine 0.5%/Epinephrine 1:200,000) Confirm Administered Dose 50 ml .ROUTE .STK-MED ONE Stop: 04/27/17 08:43 Fentanyl (Sublimaze) Confirm Administered Dose 250 mcg .ROUTE .STK-MED ONE Stop: 04/27/17 09:32 Lidocaine/Epinephrine (Xylocaine 1% With Epinephrine 1:100,000) Confirm Administered Dose 20 ml .ROUTE .STK-MED ONE Stop: 04/27/17 08:43 Propofol (Diprivan 20 Ml) Confirm Administered Dose 200 mg .ROUTE .STK-MED ONE Stop: 04/27/17 09:31
[2017-04-27] MEDS ORDERED: Bupivacaine 0.5% 30 ML SDV ONE (09:55)
[2017-04-27] MEDS ORDERED: Lidocaine 1% 30 ML SDV ONE (09:55)
[2017-04-27] MEDS ORDERED: Midazolam 1 MG/ML 2 ML SDV ONE ×2 (10:00→10:15)
[2017-04-27] MEDS ORDERED: ceFAZolin 1 GM Vial ONE (10:14)
[2017-04-27] MEDS ORDERED: fentaNYL 100 MCG/2 ML SDV ONE (10:59)
[2017-04-27] MEDS ORDERED: Ondansetron 4 MG/2 ML SDV ONE (11:00)
[2017-04-27] MEDS ORDERED: Ketorolac 30 MG/ML SDV ONE (11:00)
[2017-04-27] MEDS ORDERED: Lactated Ringers 1,000 ML ONE (11:03)
[2017-04-27 11:21] VITALS: BP 131/52
--- NOTE | 2017-04-27 11:23 | PCM.OPNOTE ---
- General Post-Op/Procedure Note Date of Surgery/Procedure: 04/27/17 Operative Procedure(s): repair of umbilical hernia with mesh Pre Op Diagnosis: umbilical hernia incarcerated omentum Post-Op Diagnosis: Same Anesthesia Technique: MAC Primary Surgeon: Nadeem Coronel EBL in mLs: 2 Complications: None Condition: Good
--- NOTE | 2017-04-28 08:48 | OR ---
DATE OF OPERATION: 04/27/2017 SURGEON: Nadeem Coronel MD PREOPERATIVE DIAGNOSIS: Umbilical hernia with incarcerated omentum. POSTOPERATIVE DIAGNOSIS: Umbilical hernia with incarcerated omentum. OPERATION PERFORMED: Repair with mesh done under IV sedation. ESTIMATED BLOOD LOSS: About 1 mL to 2 mL. FINDINGS: There was 2 cm umbilical hernia with placement of a 5 cm of Ventralex mesh. DESCRIPTION OF PROCEDURE: The patient was taken operating room, placed in a supine position, connected to monitoring equipment, given IV sedation. SCDs were placed and antibiotics were given. The abdomen was clipped and prepped with DuraPrep, draped off in a sterile fashion. A 50:50 mixture of 0.5% Marcaine and 1% Xylocaine was infiltrated in a block around the umbilicus. Curvilinear incision was then made at the inferior margin of the umbilicus, carried down by sharp dissection of the fascia. The umbilicus was then taken off the hernia and the hernia sac was opened and the omentum was identified. It was tight and would not reduce, so the omentum was reduced by taking between curved hemostats, cutting the excess off and tying with 2-0 Vicryl suture. The omentum was then reduced and the sac was then closed with a pursestring suture, 3-0 Vicryl suture. A pocket was then formed at the preperitoneal space and the Ventralex mesh was then capped down to a 5 cm circular piece of mesh and it was then placed in the preperitoneal space with quadrant sutures using 2-0 Vicryl suture that were preplaced. The Ventralex mesh was prepared prior to this with saline and the biological prepared surface was placed towards the peritoneum. Once the sutures were tied, additional quadrant sutures were placed securing the mesh in position. The other 2-0 Vicryl sutures were used to affix the edge of the mesh to the edge of the hernia. Soft tissue was then brought over the exposed mesh and umbilicus was sutured down to the fascia with interrupted 2-0 Vicryl suture. Soft tissues brought together with interrupted 3-0 Vicryl suture and the skin with a running subdermal 4-0 Dexon suture. Steri-Strips and sterile dressing were placed. The patient tolerated the procedure and sent to the recovery room in a stable condition. ANESTHESIA: MMODAL /[id number]
== END 2017-04-27 12:20 | disposition home or self-care (01) ==
LOC: JD.SDS 07:55
PROVIDERS: ATTEND Surgery
PROC: 0WUF0JZ Supplement Abdominal Wall with Synthetic Substitute, Open Approach (ICD-10-PCS; principal; 2017-04-27)
DX: K42.0 Umbilical hernia with obstruction, without gangrene (principal); I25.10 Atherosclerotic heart disease of native coronary artery without angina pectoris; I10 Essential (primary) hypertension; E78.5 Hyperlipidemia, unspecified; E66.9 Obesity, unspecified; Z87.442 Personal history of urinary calculi; Z87.891 Personal history of nicotine dependence; Z95.5 Presence of coronary angioplasty implant and graft; Z95.810 Presence of automatic (implantable) cardiac defibrillator; Z90.49 Acquired absence of other specified parts of digestive tract; Z90.89 Acquired absence of other organs; Z98.890 Other specified postprocedural states; Z79.02 Long term (current) use of antithrombotics/antiplatelets; Z79.82 Long term (current) use of aspirin; Z79.899 Other long term (current) drug therapy; Z88.1 Allergy status to other antibiotic agents; Z68.42 Body mass index [BMI] 45.0-49.9, adult
CPT/HCPCS: 49587; 93005; C1781; J0690; J1885; J2250; J2405; J3010; J7120; 00830; J2704